=== PATIENT | female | born 1960 | race Caucasian/White ===

== ENCOUNTER 2017-07-09 10:55 | Emergency (ER) | payer BC ==
[~2017-07-09] VITALS: Ht 160 cm; Wt 70.5 kg
[2017-07-09 12:06] LABS: CHLORIDE 106 mEq/L (99-109); POTASSIUM 4.6 mEq/L (3.7-5.4); SODIUM 138 mEq/L (136-147)
[2017-07-09 12:07] LABS: GLUCOSE 97 mg/dL (70-99)
[2017-07-09 12:09] LABS: ANION GAP 7 MEQ/L (2-14)
[2017-07-09 12:11] LABS: HEMATOCRIT 42.1 % (36.0-46.0); MCH 31.4 PG (29.0-34.0); MCHC 34.2 G/DL (30.0-36.0); MCV 91.9 FL (83-99); MEAN PLAT.VOLUME 8.8 uM^3 (9.5-12.4); PLATELET COUNT 289 K/uL (156-360); RBC DIS.WIDTH-CV 11.9 % (11.8-14.6); RBC DIS.WIDTH-SD 40.1 % (39-53); RED BLOOD COUNT 4.58 M/uL (3.80-5.20); WHITE BLOOD COUNT 7.7 K/uL (4.1-10.2)
[2017-07-09 12:11] LABS: GFR ESTIMATE (CALCULATED) > 59 mL/min/
[2017-07-09 12:12] LABS: UREA NITROGEN (BUN) 8 mg/dL (9-23)
[2017-07-09] MEDS ORDERED: CLINDAMYCIN HC300 MG PO (13:33)
[2017-07-09] MEDS ORDERED: PERCOCET 5/31 TABLET PO (13:33)
[2017-07-09 14:23] VITALS: BP 122/78
== END 2017-07-09 14:24 | disposition home or self-care (01) ==
LOC: EME 10:55
PROVIDERS: Nurse Practitioner Family
DX: K04.7 Periapical abscess without sinus (principal); E04.1 Nontoxic single thyroid nodule; F17.200 Nicotine dependence, unspecified, uncomplicated
CPT/HCPCS: 70487; 80048; 85027; 99281; 99284